=== PATIENT | male | born 1995 | race Hispanic/Latino ===

== ENCOUNTER 2016-12-30 13:52 | Emergency (ER) | payer MEDICAID ==
[2016-12-30 14:15] VITALS: BP 103/70; PULSE 87; RESP 18; TEMP 98; O2SAT 98
--- NOTE | 2016-12-30 15:50 | C.PDOC ---
History Of Present Illness 21 year old male, whose PMHx includes eczema, presents to the ED requesting a medication refill. Patient states he ran out of his eczema cream two weeks ago and his symptoms worsened over the past 2 days. Patient has not followed up with his PMD. He denies fever, chills. Time Seen by Provider: 12/30/16 14:40 Chief Complaint (Nursing): Med Refill History Per: Patient History/Exam Limitations: no limitations Onset/Duration Of Symptoms: Days (2) Current Symptoms Are (Timing): Worse Additional History Per: Patient Past Medical History Reviewed: Historical Data, Nursing Documentation, Vital Signs Vital Signs: Last Vital Signs Temp 98 F 12/30/16 14:12 Pulse 87 12/30/16 14:12 Resp 18 12/30/16 14:12 BP 103/70 12/30/16 14:12 Pulse Ox 98 12/30/16 21:00 - Medical History PMH: No Chronic Diseases Surgical History: No Surg Hx Family History: States: Unknown Family Hx - Social History Hx Alcohol Use: Yes Hx Substance Use: No Review Of Systems Constitutional: Negative for: Fever, Chills Skin: Positive for: Other (eczema medicine refill ) Physical Exam - Physical Exam Appears: Non-toxic, No Acute Distress Skin: Normal Color, Warm, Dry Head: Atraumatic, Normacephalic, Other ((+) red macular rash to the bilateral arm and face, no evidence of cellulitis) Eye(s): bilateral: Normal Inspection, PERRL, EOMI Oral Mucosa: Moist Extremity: Normal ROM Neurological/Psych: Oriented x3, Normal Speech, Normal Cognition Gait: Steady ED Course And Treatment O2 Sat by Pulse Oximetry: 98 (on RA) Pulse Ox Interpretation: Normal Disposition - Disposition Referrals: [facility] [Outside] Disposition: HOME/ ROUTINE Disposition Time: 15:48 Condition: GOOD Additional Instructions: Follow up with the medical doctor within 1-2 days. Return if worsened. Prescriptions: Desonide [Tridesilon] 60 gm TP DAILY #1 cream..g. Instructions: Dermatitis (ED) Forms: [employer] (Bermudian) - Clinical Impression Clinical Impression: Review of medication, Eczema - PA / SOFTWARE FIRMWARE ENGINEER / Resident Statement MD/DO has reviewed & agrees with the documentation as recorded. - Scribe Statement The provider has reviewed the documentation as recorded by the Scribe (Denise Garcia) All medical record entries made by the Scribe were at my direction and personally dictated by me. I have reviewed the chart and agree that the record accurately reflects my personal performance of the history, physical exam, medical decision making, and the department course for this patient. I have also personally directed, reviewed, and agree with the discharge instructions and disposition.
== END 2016-12-30 15:54 | disposition home or self-care (01) ==
LOC: C.ER 13:52
DX: L30.9 Dermatitis, unspecified (principal)